=== PATIENT | female | born 1995 | race African-American/Black ===

== ENCOUNTER 2024-05-28 12:54 | Emergency (ER) | payer MEDICAID, SELFPAY ==
[2024-05-28 12:58] VITALS: BMI 46.2
--- NOTE | 2024-05-28 13:13 | XR_ITS ---
Examination: Complete OB ultrasound, less than 14 weeks, transabdominal Date and time of exam: May 28, 2024 1438 hours INDICATIONS: Status post miscarriage with heavy vaginal bleeding beginning yesterday Technique: Obstetrical ultrasound images less than 14 weeks performed via transabdominal imaging Findings: Uterus 12.8 x 5.0 x 8.2 cm Posterior uterine fibroid degeneration 5.7 x 4.6 x 4.0 cm Endometrial stripe 13 mm Right ovary 2.0 x 1.7 x 2.1 cm arterial flow Left ovary 2.2 x 1.8 x 1.5 cm arterial flow No fluid in IMPRESSION: Large area of uterine fibroid degeneration as above, recommend 6 month follow-up transvaginal pelvic sonography the cul-de-sac
--- NOTE | 2024-05-28 13:14 | EDNOTE_ITS ---
ED OB Contraction Preg RMI/HPI General Chief complaint: Vaginal Bleeding Stated complaint: CLEARANCE Time Seen by Provider: 05/28/24 13:08 Arrival date/time: 05/28/24 12:54 RME / HPI RME / HPI Narrative: 29-year-old female patient with no significant past medical history, 2 para 1, came in for evaluation regarding vaginal bleeding. Patient's been having spotting since 1 week prior to ER visit getting worse last night, this ti me associated with pelvic cramping and passing of blood clots. Patient denies any dizziness denies any other complaints. Patient was brought in by law enforcement for medical clearance. Related Data Allergies Allergy/AdvReac Type Severity Reaction Status Date / Time No Known Allergies Allergy Verified 06/04/23 21:45 Review of Systems Review of Systems Narrative Review of Systems: Review of system reviewed and within normal limits except mentioned in HPI ED Exam Narrative Physical exam: VITAL SIGNS: Reviewed. GENERAL APPEARANCE: Alert and interactive, follows commands, no acute distress, HEAD AND FACE: Non-traumatic. ENT: PERRL, pink conjunctivitis, eyelid no trauma, Mucous membrane moist. NECK: Supple, nontender, no nuchal rigidity. CHEST: No tenderness, no crepitus, no paradoxical movement, no retractions. LUNGS: Clear, well ventilated, symmetric, no rales, no wheezing, no ronchi, no stridor, good breath sounds bilaterally. HEART: Regular rate, regular rhythm, no murmur, no gallops. ABDOMEN: Soft, positive bowel sounds, nondistended, no guarding, nontender, no rebound, no masses, RECTAL: Deferred. GENITAL: Deferred. NEUROLOGICAL: Gross motor function intact sensory function intact, Appropriate for age. MUSCULOSKELETAL: low back nontender, full range of motion. EXTREMITIES: Nontender, full range of motion. SKIN: Color pink, dry, no rash, no lacerations, no abrasions, no contusions. LYMPHATICS: Deferred. Course Quality Measures none Orders Category Date Time Status US OB <= 14 weeks fetus Stat Exams 05/28/24 13:13 Completed ABO/RH Type Stat Lab 05/28/24 13:33 Completed Basic Metabolic Panel Stat Lab 05/28/24 13:33 Completed Beta HCG,Quantitative Stat Lab 05/28/24 13:33 Completed CBC Stat Lab 05/28/24 13:33 Completed Urinalysis Stat Lab 05/28/24 13:31 Completed Acetaminophen Tab [Tylenol Tab] Med 05/28/24 13:13 Discontinued 650 mg PO X1 ONE Vaginal Bleeding MDM Narrative MDM Narrative: 29-year-old female patient with no significant past medical history, 2 para 1, came in for evaluation regarding vaginal bleeding. Patient's been having spotting since 1 week prior to ER visit getting worse last night, this time associated with pelvic cramping and passing of blood clots. Patient denies any dizziness denies any other complaints. Patient was brought in by law enforcement for medical clearance. Patient's workup all came back with with hCG of 691. Ultrasound of the showed no IUP no abnormality noted except for ovarian cyst. We did not see any IUD. Results discussed with the patient. According to the patient's last week patient's hCG was noted to be more than 13,000. And today it went down to 691. Patient is probably having inevitable versus completed . Patient stable for discharge. There is no sign of anemia. Patient data External records reviewed:: None Clinical information provided by:: patient and law enforcement Social determinants that could affect healthcare access:: none Patient has the following chronic illnesses:: None How is presenting disease/condition affected by chronic disease/condition?: uneffected by Evaluation data The following diagnostics were reviewed and interpreted by me:: lab results and radiology exam(s) Lab and/or radiology exams considered but not ordered:: None Interpretation Summary: Patient's workup all came back with with hCG of 691. Ultrasound of the showed no IUP no abnormality noted except for ovarian cyst. We did not see any IUD. Medications / Prescriptions Medications or Prescriptions considered but not ordered:: None Medication administrations:: Medication Administration History Discontinued Medications Acetaminophen (Acetaminophen 325 Mg Tablet) 650 mg PO X1 ONE Stop: 05/28/24 13:14 Last Admin: 05/28/24 13:27 Dose: 650 mg Documented By: KALE Tylenol Consultations Consultation(s) initiated? (list below): No Diagnosis Vaginal Bleeding Differential Diagnosis: missed , threatened and other (Completed ) Most likely diagnosis given after review of the tests above:: Miscarriage Admission Indicated Admission indicated?: not indicated Explain why admission is indicated or not indicated:: Stable Admission Request Was there a request for admission?: No Disposition Plan Disposition Plan: Discharge Discharge Attestation Discharge Attestation: The patient was given an opportunity to ask questions and understood the discharge instructions. Discharge instructions specifically effects, indications for sooner follow up or return to the emergency department, and the expected course of current diagnosis. Patient condition: Stable Discharge Plan Plan Patient Disposition: HOME (Self Care) Disposition Comment: stable Prescriptions/Referrals Referrals: No Primary/Family,Physician [Primary Care Provider] - In 1 week Problem List Clinical Impression: Miscarriage Patient/Caregiver Discharge Instructions Education Materials: Understanding Miscarriage: Emotions, Understanding Miscarriage: Recovery Additional Instructions: Thank you for the opportunity for serving you today. You are stable for discharged . You are advised to: Follow-up with your MATERIALS RECYCLER in 1 to 2 days Return to ED for worsening of symptoms Print Language: Mexican Stand Alone Forms: Pham Award Info., Patient Portal Info Letter REJI/ROSAMARIA Supervising Physician REJI/ROSAMARIA Supervising Physician: MD Latasha
[2024-05-28] MEDS: ACETAMINOPHEN 325 MG TABLET 650 MG PO (13:27)
[2024-05-28 13:37] LABS: Collection Type, Urine Clean Catch
[2024-05-28 13:52] LABS: Basophils # (Auto) 0.1 Thou/mm3 (0.0-0.2); Basophils % (Auto) 1 % (0-2.5); Eosinophils # (Auto) 0.3 Thou/mm3 (0.0-0.5); Eosinophils % (Auto) 4 % (0-10); Hematocrit 38.2 % (36.0-46.0); Hemoglobin 12.2 g/dL (12.0-16.0); Immature Granulocytes % (Auto) 0 % (0-0); Immature Granulocytes Auto 0.02 Thou/mm3 (0.00-0.00); Lymphocytes # (Auto) 1.1 Thou/mm3 (1.0-4.8); Lymphocytes % (Auto) 14 % (10-50); Mean Corpuscular HGB Conc 31.9 g/dl (31.0-37.0); Mean Corpuscular Hemoglobin 25.6 pg (25.0-35.0); Mean Corpuscular Volume 80 fL (80-100); Monocytes # (Auto) 0.5 Thou/mm3 (0.0-0.8); Monocytes % (Auto) 7 % (0-12); Neutrophils # (Auto) 6.1 Thou/mm3 (1.8-7.7); Neutrophils % (Auto) 75 % (37-80); Nucleated Red Blood Cell % 0 /100 WBC (0); Platelet Count 347 Thou/mm3 (140-440); RDW Standard Deviation 44.8 fL (36.4-46.3); Red Blood Count 4.76 Miln/mm3 (4.00-5.20); White Blood Count 8.2 Thou/mm3 (3.6-11.0)
[2024-05-28 13:59] LABS: Bacteria,Urine Rare; Bilirubin,Urine Negative (Negative); Blood,Urine 3+ (Negative); Color,Urine Colorless (Lt Yel-Yel); Glucose, Urine Negative (Negative); Ketones,Urine Negative (Negative); Leukocyte Esterase,Urine Positive (Negative); Nitrite,Urine Negative (Negative); Protein,Urine Trace (Neg - Trace); RBC,Urine 1403 /hpf (0-3); Specific Gravity,Urine 1.016 (1.001-1.035); Squamous Epithelial Cell,Urine 6 /hpf (0-5); Urobilinogen,Urine Negative mg/dL (0.0-1.0); WBC,Urine 5 /hpf (0-5)
[2024-05-28 14:04] LABS: Clarity,Urine Hazy (Clear/Hazy)
[2024-05-28 14:32] LABS: Anion Gap 6 (7-16); BUN/Creatinine Ratio 11 Ratio (12-20); Beta HCG,Quantitative 691 mIU/mL (<5.0); Blood Urea Nitrogen 10 mg/dL (9-23); Calcium 9.7 mg/dL (8.3-10.6); Chloride 108 mMol/L (98-107); Creatinine (Component) 0.9 mg/dL (0.6-1.3); Glucose 102 mg/dL (74-106); Osmolality,Calculated 272 (275-295); Potassium 3.8 mMol/L (3.4-5.1); Sodium 137 mMol/L (136-145); eGFR > 60 See Note
== END 2024-05-28 15:34 | disposition home or self-care (01) ==
PROVIDERS: Nurse Practitioner Family; Emergency Provider Emergency Medicine
DX: O03.9 Complete or unspecified spontaneous abortion without complication (principal); N83.209 Unspecified ovarian cyst, unspecified side
CPT/HCPCS: 36415; 76801; 80048; 81001; 84702; 85025; 86900; 86901; 99284; A9270

== ENCOUNTER 2024-05-30 14:44 | Emergency (ER) | payer MEDICAID, SELFPAY ==
--- NOTE | 2024-05-30 15:06 | XR_ITS ---
Examination: OB Transvaginal ultrasound of the pelvis, complete Technique: Transvaginal sonographic images pelvis performed using finch scale imaging Exam date and time: May 30, 2024 1538 hrs. Indications: Vaginal bleeding beginning 9 days ago Findings: Uterus 7.7 x 8.8 x 7.6 cm Posterior uterine body area of fibroid degeneration 5.0 x 3.9 cm Endometrial stripe 0.5 cm No intrauterine gestation Right ovary 2.6 x 1.6 cm arterial flow Left ovary 2.8 x 2.2 cm arterial flow Impression: Uterine area of fibroid degeneration No intrauterine gestation.
--- NOTE | 2024-05-30 15:07 | PD.EDRME ---
Rapid Medical Screening Exam RME Arrival date/time: 05/30/24 14:44 29-year-old female presents to the emergency department today stating that she is having a miscarriage reports pelvic cramping and bleeding Chief Complaint: Vaginal Bleeding Time Seen by Provider: 05/30/24 14:53
[2024-05-30 15:09] VITALS: BP 131/86; PULSE 73; RESP 18; TEMP 36.9; O2SAT 98; BMI 46.2
[2024-05-30 15:30] LABS: Basophils # (Auto) 0.1 Thou/mm3 (0.0-0.2); Basophils % (Auto) 1 % (0-2.5); Eosinophils # (Auto) 0.5 Thou/mm3 (0.0-0.5); Eosinophils % (Auto) 8 % (0-10); Hemoglobin 11.8 g/dL (12.0-16.0); Immature Granulocytes % (Auto) 0 % (0-0); Immature Granulocytes Auto 0.02 Thou/mm3 (0.00-0.00); Lymphocytes # (Auto) 1.9 Thou/mm3 (1.0-4.8); Lymphocytes % (Auto) 26 % (10-50); Mean Corpuscular HGB Conc 31.9 g/dl (31.0-37.0); Mean Corpuscular Hemoglobin 25.7 pg (25.0-35.0); Mean Corpuscular Volume 80 fL (80-100); Monocytes # (Auto) 0.5 Thou/mm3 (0.0-0.8); Monocytes % (Auto) 7 % (0-12); Neutrophils # (Auto) 4.1 Thou/mm3 (1.8-7.7); Neutrophils % (Auto) 58 % (37-80); Nucleated Red Blood Cell % 0 /100 WBC (0); Platelet Count 320 Thou/mm3 (140-440); RDW Standard Deviation 44.5 fL (36.4-46.3)
[2024-05-30 15:54] LABS: Alanine Aminotransferase 14 U/L (10-49); Albumin, Serum 4.5 gm/dL (3.5-5.0); Albumin/Globulin Ratio 1.6 (1.2-2.2); Alkaline Phosphatase 64 U/L (46-116); Anion Gap 8 (7-16); Aspartate Amino Transferase < 8 U/L (0-34); BUN/Creatinine Ratio 11 Ratio (12-20); Beta HCG,Quantitative 181 mIU/mL (<5.0); Bilirubin,Total 0.7 mg/dL (0.3-1.2); Blood Urea Nitrogen 10 mg/dL (9-23); Calcium 9.5 mg/dL (8.3-10.6); Calcium (Corrected) 9.5 mg/dL (8.5-10.1); Carbon Dioxide 24.4 mMol/L (20.0-31.0); Chloride 107 mMol/L (98-107); Creatinine (Component) 0.9 mg/dL (0.6-1.3); Globulin 2.8 gm/dL (2.3-3.5); Glucose 145 mg/dL (74-106); Osmolality,Calculated 279 (275-295); Potassium 3.7 mMol/L (3.4-5.1); Sodium 139 mMol/L (136-145); Total Protein 7.3 gm/dL (5.7-8.2); eGFR > 60 See Note
--- NOTE | 2024-05-30 16:51 | EDNOTE_ITS ---
ED OB Contraction Preg RMI/HPI General Chief complaint: Vaginal Bleeding Stated complaint: I'M MISCARRYING 11 WEEKS Time Seen by Provider: 05/30/24 14:53 Arrival date/time: 05/30/24 14:44 RME / HPI RME / HPI Narrative: 29-year-old female patient 2 para 1, came in via private vehicle, for evaluation regarding worsening pelvic cramping and bleeding. Patient was seen here 2 days ago for the same complaints. hCG during time was noted to be 691. Ultrasound did not show any intrauterine gestation except for uterine fibroids. This morning patient developed worsening pelvic pain and cramping, and passing of blood clots. It was 8 out of 10 prior to arrival. Denies any dizziness. Patient is ambulatory. Denies any other complaints. Related Data Allergies Allergy/AdvReac Type Severity Reaction Status Date / Time No Known Allergies Allergy Verified 05/30/24 14:47 Review of Systems Review of Systems Narrative Review of Systems: Review of system reviewed and within normal limits except mentioned in HPI ED Exam Narrative Physical exam: VITAL SIGNS: Reviewed. GENERAL APPEARANCE: Alert and interactive, follows commands, no acute distress, HEAD AND FACE: Non-traumatic. ENT: PERRL, pink conjunctivitis, eyelid no trauma, Mucous membrane moist. NECK: Supple, nontender, no nuchal rigidity. CHEST: No tenderness, no crepitus, no paradoxical movement, no retractions. LUNGS: Clear, well ventilated, symmetric, no rales, no wheezing, no ronchi, no stridor, good breath sounds bilaterally. HEART: Regular rate, regular rhythm, no murmur, no gallops. ABDOMEN: Soft, positive bowel sounds, nondistended, no guarding, nontender, no rebound, no masses, RECTAL: Deferred. GENITAL: Deferred. NEUROLOGICAL: Gross motor function intact sensory function intact, Appropriate for age. MUSCULOSKELETAL: low back nontender, full range of motion. EXTREMITIES: Nontender, full range of motion. SKIN: Color pink, dry, no rash, no lacerations, no abrasions, no contusions. LYMPHATICS: Deferred. Course Quality Measures none Orders Category Date Time Status US OB transvaginal Stat Exams 05/30/24 15:06 Completed ABO/RH Type Stat Lab 05/30/24 15:15 Results Beta HCG,Quantitative Stat Lab 05/30/24 15:15 Completed CBC Stat Lab 05/30/24 15:15 Completed Comprehensive Metabolic Panel Stat Lab 05/30/24 15:15 Completed Ketorolac Inj [Toradol Inj] Med 05/30/24 16:51 Once 30 mg IM X1 ONE Vital Signs Vital signs: Vital Signs Temperature 98.5 F 05/30/24 15:09 Pulse Rate 73 05/30/24 15:09 Respiratory Rate 18 05/30/24 15:09 Blood Pressure 131/86 H 05/30/24 15:09 Pulse Oximetry (%) 98 05/30/24 15:09 Oxygen Delivery Method Room Air 05/30/24 15:09 Vaginal Bleeding MDM Narrative MDM Narrative: 29-year-old female patient 2 para 1, came in via private vehicle, for evaluation regarding worsening pelvic cramping and bleeding. Patient was seen here 2 days ago for the same complaints. hCG during time was noted to be 691. Ultrasound did not show any intrauterine gestation except for uterine fibroids. This morning patient developed worsening pelvic pain and cramping, and passing of blood clots. It was 8 out of 10 prior to arrival. Denies any dizziness. Patient is ambulatory. Denies any other complaints. Today's hCG was noted to be 181. From 691 2 days ago. Patient ultrasound showed no IUP except for uterine fibroids. Results discussed with the patient. Patient told me that her pelvic pain and vaginal bleeding is less for the last 2 hours while in the emergency room. She did not change her pad since then. Patient was told that she probably having completed miscarriage is already since her hCG is already significantly lower from 2 days ago. Patient appears nontoxic and hemodynamically stable. Patient discharged home and instructed to follow-up with [facility] SPECIALIST in 24 to 48 hours. Instructed to return to the emergency department immediately if worsening of symptoms. Patient data External records reviewed:: None Clinical information provided by:: none Social determinants that could affect healthcare access:: none Patient has the following chronic illnesses:: None How is presenting disease/condition affected by chronic disease/condition?: no chronic disease Evaluation data The following diagnostics were reviewed and interpreted by me:: lab results and radiology exam(s) Lab and/or radiology exams considered but not ordered:: None Interpretation Summary: CBC no sign of leukocytosis or anemia. hCG today was noted to be 181. Ultrasound of showed no IUP, except for uterine fibroids. Medications / Prescriptions Medications or Prescriptions considered but not ordered:: None Medication administrations:: Toradol IM Consultations Consultation(s) initiated? (list below): No Diagnosis Vaginal Bleeding Differential Diagnosis: missed and threatened Most likely diagnosis given after review of the tests above:: Admission Indicated Admission indicated?: not indicated Explain why admission is indicated or not indicated:: Stable Admission Request Was there a request for admission?: No Disposition Plan Disposition Plan: Admit Discharge Plan Plan Patient Disposition: HOME (Self Care) Disposition Comment: Stable Prescriptions/Referrals Referrals: Ruth Rodriguez FNP [Primary Care Provider] - In 1 week Problem List Clinical Impression: Miscarriage Patient/Caregiver Discharge Instructions Discharge Activity: activity as tolerated Education Materials: Loss Grieving Additional Instructions: Thank you for the opportunity for serving you today. You are stable for discharged . You are advised to: Follow-up with your [facility] SERVICE SPECIALIST in 1 to 2 days Return to ED for worsening of symptoms Increase oral fluids You may combine Tylenol and Motrin for pelvic pain Print Language: Venezuelan Stand Alone Forms: Pham Award Info., Patient Portal Info Letter REJI/ROSAMARIA Supervising Physician NICOLE Supervising Physician: MD Estefany
[2024-05-30] MEDS: KETOROLAC INJ 60 MG/2 ML VIAL 30 MG IM (17:06)
== END 2024-05-30 17:40 | disposition home or self-care (01) ==
PROVIDERS: Nurse Practitioner Primary Care; Emergency Provider Emergency Medicine; PCP Nurse Practitioner Family
DX: O03.9 Complete or unspecified spontaneous abortion without complication (principal); D25.9 Leiomyoma of uterus, unspecified
CPT/HCPCS: 36415; 76817; 80053; 84702; 85025; 86900; 86901; 96372; 99284; J1885

== ENCOUNTER 2024-09-06 22:55 | Emergency (ER) | payer MEDICAID, SELFPAY ==
[2024-09-06 22:55] VITALS: BMI 46.9
[2024-09-06 23:23] VITALS: BP 141/83; PULSE 78; RESP 18; TEMP 36.8; O2SAT 100
[2024-09-06] MEDS: IBUPROFEN TAB 400 MG TABLET 800 MG PO (23:50)
[2024-09-06] MEDS: DiphenhydrAMINE INJ 50 MG/ML VIAL IM (23:50)
[2024-09-07 00:06] LABS: Strep A Rapid Negative (Negative)
[2024-09-07] MEDS: DEXAMETHASONE SOD PHOS INJ 10 MG/ML VIAL PO (00:50)
--- NOTE | 2024-09-07 00:58 | PD.EDDENTL ---
ED Dental RME/HPI General Chief complaint: Dental/Oral/Throat Stated complaint: SORE THROAT Time Seen by Provider: 09/06/24 22:57 Arrival date/time: 09/06/24 22:55 29-year-old female that comes in with complaints of sore throat that started today. Patient states she was having a hard time swallowing. Patient denies any new medication any new food that she tried today. Patient denies rash. Related Data Previous Rx's ?Medication ?Instructions ?Recorded ibuprofen 800 mg tablet 800 mg PO Q6H PRN pain #14 tabs 09/07/24 Allergies Allergy/AdvReac Type Severity Reaction Status Date / Time No Known Allergies Allergy Verified 05/30/24 14:47 Review of Systems Review of Systems Systems Reviewed: All systems reviewed, normal except as documented Past Medical History Past Medical History Comments PMH COMMENT: Denies ED Exam General General appearance: Present alert and in no apparent distress Head Head exam: Present atraumatic Eye Eye exam: Present normal appearance, PERRL and EOMI ENT ENT exam: Present mucous membranes moist and other (Mild erythema to posterior pharynx.) Neck Neck exam: Present normal inspection, full ROM and trachea midline Chest Chest inspection: Present normal inspection and symmetric chest wall rise Respiratory Respiratory exam: Present normal lung sounds bilaterally Cardiovascular Cardiovascular exam: Present regular rate Abdominal Exam Abdominal exam: Present soft Extremities Exam Extremities exam: Present normal inspection and full ROM Back Exam Back exam: Present normal inspection and full ROM Neurological Exam Neurological exam: Present alert, oriented X3 and CN II-XII intact Psychiatric Psychiatric exam: Present normal affect and normal mood Skin Skin exam: Present warm, dry, intact and normal color Course Quality Measures none Orders Category Date Time Status Strep A Rapid Stat Lab 09/06/24 23:45 Completed Dexamethasone Inj [Decadron Inj] Med 09/07/24 00:23 Discontinued 10 mg PO X1 ONE DiphenhydrAMINE INJ [Benadryl Inj] Med 09/06/24 23:42 Discontinued 50 mg IM X1 ONE Ibuprofen Tab [Motrin Tab] Med 09/06/24 23:42 Discontinued 800 mg PO X1 ONE Vital Signs Vital signs: Vital Signs Temperature 98.3 F 09/06/24 23:23 Pulse Rate 78 09/06/24 23:23 Respiratory Rate 18 09/06/24 23:23 Blood Pressure 141/83 H 09/06/24 23:23 Pulse Oximetry (%) 100 09/06/24 23:23 Oxygen Delivery Method Room Air 09/06/24 23:23 Dental / Oral MDM Narrative MDM Narrative:: Patient given a dose of Decadron, ibuprofen and Benadryl. Patient feels better. Patient told to follow-up with primary provider in 1 to 2 days. Come back to emergency room symptoms change or worsen. Patient's quick strep was negative. Will treat with supportive measures. Patient data External records reviewed:: [facility] previous records Clinical information provided by:: patient Social determinants that could affect healthcare access:: none Patient has the following chronic illnesses:: none How is presenting disease/condition affected by chronic disease/condition?: no chronic disease Evaluation data The following diagnostics were reviewed and interpreted by me:: lab results Lab and/or radiology exams considered but not ordered:: none Interpretation Summary: see note Medications / Prescriptions Medications or Prescriptions considered but not ordered:: none Medication administrations:: Medication Administration History Discontinued Medications Dexamethasone Sodium Phosphate (Dexamethasone Sod Phos Inj 10 Mg/Ml Vial) 10 mg PO X1 ONE Stop: 09/07/24 00:24 Last Admin: 09/07/24 00:50 Dose: 10 mg Documented By: EF Diphenhydramine HCl (Diphenhydramine Inj 50 Mg/Ml Vial) 50 mg IM X1 ONE Stop: 09/06/24 23:43 Last Admin: 09/06/24 23:50 Dose: 50 mg Documented By: EF Ibuprofen (Ibuprofen Tab 400 Mg Tablet) 800 mg PO X1 ONE Stop: 09/06/24 23:43 Last Admin: 09/06/24 23:50 Dose: 800 mg Documented By: EF see [facility] Consultations Consultation(s) initiated? (list below): No Diagnosis Most likely diagnosis given after review of the tests above:: uri Admission Indicated Admission indicated?: not indicated Admission Request Was there a request for admission?: No Disposition Plan Disposition Plan: Discharge Discharge Attestation Discharge Attestation: The patient and all family members were given an opportunity to ask questions and understood the discharge instructions. Discharge instructions specifically effects, indications for sooner follow up or return to the emergency department, and the expected course of current diagnosis. Patient condition: Stable Discharge Plan Plan Patient Disposition: HOME (Self Care) Patient condition on transfer: Stable Prescriptions/Referrals Prescriptions/Med Rec: New ibuprofen 800 mg tablet 800 mg PO Q6H PRN (Reason: pain) Qty: 14 0RF Referrals: No Primary/Family,Physician [Primary Care Provider] - In 1 week Problem List Clinical Impression: Sorethroat, URI (upper respiratory infection) Patient/Caregiver Discharge Instructions Discharge Activity: activity as tolerated Education Materials: ED URI, Viral, No Abx (Adult) Additional Instructions: Follow up with primary provider in 1-2 days. Come back to ED if symptoms change or worsen Print Language: Estonian Stand Alone Forms: Pham Award Info., Patient Portal Info Letter PA/CHINESE LANGUAGE PROFESSOR Supervising Physician PA/CHINESE LANGUAGE PROFESSOR Supervising Physician: david
== END 2024-09-07 01:37 | disposition home or self-care (01) ==
PROVIDERS: Nurse Practitioner Family; Emergency Provider Emergency Medicine
DX: J06.9 Acute upper respiratory infection, unspecified (principal)
CPT/HCPCS: 87651; 96372; 99283; J1100; J1200; A9270